=== PATIENT | male | born 1985 | race Caucasian/White ===

== ENCOUNTER 2016-09-10 23:50 | Emergency (ER) | payer OTHER ==
[~2016-09-10] VITALS: Ht 157.5 cm; Wt 57.9 kg
[2016-09-10 23:56] VITALS: TEMP 36.7; Ht 157.5 cm; Wt 57.9 kg
[2016-09-11] MEDS ORDERED: CLINDAMYCIN HCL 150 MG CAP PO ONE (00:15)
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
[2016-09-11 00:31] LABS: URINE APPEARANCE CLEAR (CLEAR); URINE BILIRUBIN NEG (NEG); URINE COLOR YELLOW; URINE EPITHELIAL CELL AUTO 0-5 /lpf (0-5); URINE NITRITE NEG (NEG); URINE PH 7.5 (4.5-7.5); URINE SPECIFIC GRAVITY 1.012 (1.000-1.030); UROBILINOGEN NEG (NEG); ZZUR CULT IF INDIC CLEAN CATCH NO
[2016-09-11 00:34] LABS: MANUAL MICROSCOPIC REQUIRED? NO; REVIEW REQ? NO
[2016-09-11 00:46] LABS: BENZODIAZEPINE, URINE NEG (NEG); COCAINE,URINE NEG (NEG); PHENCYCLIDINE, URINE NEG (NEG)
[2016-09-11 00:51] LABS: BASO % 0.2 %; BASO ABS # 0.02 K/uL (0-0.2); COMPLETE YES; EOS % 0.5 %; HEMATOCRIT 43.9 % (42-52); IG% 0.8 %; LYMPH % 19.7 %; LYMPH ABS # 2.01 K/uL (1.2-3.4); MEAN CELL VOLUME 89.6 fL (80-100); MEAN CORPUSCULAR HGB CONC 34.6 g/dl (32-36); MEAN PLATELET VOLUME 9.3 fL (7.4-10.4); MONO % 6.7 %; NEUT % 72.1 %; PLATELET COUNT 279 K/uL (130-400); WHITE BLOOD COUNT 10.18 K/uL (4.8-10.8)
[2016-09-11] MEDS ORDERED: LAMO100T16 PO (00:56)
[2016-09-11] MEDS ORDERED: RISP2TAB22 PO (00:56)
[2016-09-11] MEDS ORDERED: CITA40TA12 PO (00:56)
[2016-09-11] MEDS ORDERED: LAMO25TA PO (00:56)
[2016-09-11 01:09] LABS: ALT/SGPT 44 U/L (12-78); AST/SGOT 18 U/L (15-37); BLOOD UREA NITROGEN 24 mg/dl (7-18); BUN/CREATININE RATIO 38.7 (10-20); CALCIUM 9.1 mg/dl (8.5-10.1); CARBON DIOXIDE 28 mmol/L (21-32); CHLORIDE 103 mmol/L (98-107); CREATININE 0.62 mg/dl (0.60-1.40); GLUCOSE 97 mg/dl (70-99); POTASSIUM 3.7 mmol/L (3.5-5.1); SODIUM 139 mmol/L (136-145)
[2016-09-11 01:19] LABS: ALB/GLOB RATIO 1.3 (0.9-2); ALKALINE PHOSPHATASE 68 U/L (45-117)
[2016-09-11 01:31] LABS: ACETAMINOPHEN < 2 ug/ml (10-30)
[2016-09-11] MEDS ORDERED: CLIN300C2 PO (02:21)
[2016-09-11 06:41] VITALS: BP 125/71; PULSE 81; O2SAT 98
== END 2016-09-11 06:41 | disposition home or self-care (01) ==
LOC: C.EDB 23:53 → C.EDA 09-11 06:41
DX: F33.41 Major depressive disorder, recurrent, in partial remission (principal); F39 Unspecified mood [affective] disorder; F43.10 Post-traumatic stress disorder, unspecified; K04.7 Periapical abscess without sinus; F31.9 Bipolar disorder, unspecified; K02.9 Dental caries, unspecified; K08.89 Other specified disorders of teeth and supporting structures; F17.200 Nicotine dependence, unspecified, uncomplicated; R56.9 Unspecified convulsions

== ENCOUNTER 2016-09-12 02:36 | Inpatient (IN) | payer OTHER ==
[~2016-09-12] VITALS: Ht 157.5 cm; Wt 57.2 kg
[~2016-09-12 02:36] MED LIST: CITA40TA12 PO; CLIN300C2 PO; LAMO100T16 PO; LAMO25TA PO; RISP2TAB22 PO
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
[2016-09-12] MEDS ORDERED: CLINDAMYCIN HCL 150 MG CAP PO ONE (03:00)
[2016-09-12 03:04] LABS: BASO % 0.6 %; BASO ABS # 0.04 K/uL (0-0.2); COMPLETE YES; EOS % 1.5 %; HEMATOCRIT 41.2 % (42-52); IG% 0.4 %; LYMPH % 40.1 %; MEAN CELL VOLUME 89.6 fL (80-100); MEAN CORPUSCULAR HEMOGLOBIN 30.7 pg (25-34); MEAN CORPUSCULAR HGB CONC 34.2 g/dl (32-36); MEAN PLATELET VOLUME 9.1 fL (7.4-10.4); MONO % 9.4 %; PLATELET COUNT 265 K/uL (130-400); WHITE BLOOD COUNT 7.24 K/uL (4.8-10.8)
[2016-09-12 03:07] LABS: URINE APPEARANCE CLEAR (CLEAR); URINE BILIRUBIN NEG (NEG); URINE COLOR YELLOW; URINE NITRITE NEG (NEG); UROBILINOGEN NEG (NEG); ZZUR CULT IF INDIC CLEAN CATCH NO
[2016-09-12 03:08] LABS: MANUAL MICROSCOPIC REQUIRED? NO; REVIEW REQ? NO
[2016-09-12 03:30] LABS: BENZODIAZEPINE, URINE NEG (NEG); COCAINE,URINE NEG (NEG); PHENCYCLIDINE, URINE NEG (NEG)
[2016-09-12 03:49] LABS: ACETAMINOPHEN < 2 ug/ml (10-30)
[2016-09-12 03:51] LABS: ALB/GLOB RATIO 1.4 (0.9-2); BUN/CREATININE RATIO 29.1 (10-20); CALCIUM 8.8 mg/dl (8.5-10.1); CREATININE 0.76 mg/dl (0.60-1.40); POTASSIUM 3.7 mmol/L (3.5-5.1)
[2016-09-12] MEDS ORDERED: NURSING VERBAL MED ORDER ONE (05:30)
[2016-09-12 05:39] VITALS: O2SAT 96
[2016-09-12 05:45] VITALS: BP 105/66; PULSE 79; TEMP 36.3; BMI 22.5
[2016-09-12] MEDS ORDERED: BISMUTH SUBSALICYLATE PER ML OMNICELL CHARGE PO PRN (05:45)
[2016-09-12] MEDS ORDERED: SODIUM CHLORIDE 0.65% NA SOLN 45 ML (OCEAN) PRN (05:45)
[2016-09-12] MEDS ORDERED: ACETAMINOPHEN 325 MG TAB PO PRN (05:45)
[2016-09-12] MEDS ORDERED: hydrOXYzine HCL 25 MG TAB PO PRN ×2 (05:45)
[2016-09-12] MEDS ORDERED: ALUMINUM/MAGNESIUM SUSP 30 ML UDC PO PRN (05:45)
[2016-09-12] MEDS ORDERED: MAGNESIUM HYDROXIDE SUSP 30 ML UDC PO PRN (05:45)
[2016-09-12 12:57] VITALS: BP 105/66; PULSE 79; TEMP 36.3; Ht 157.5 cm; Wt 57.2 kg
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
[2016-09-12] MEDS: CLINDAMYCIN HCL 150 MG CAP PO SCH ×2 (17:14→21:52)
[2016-09-12] MEDS: CITALOPRAM 40 MG TAB PO SCH (21:52)
[2016-09-12] MEDS: RISPERIDONE 2 MG TAB PO SCH (21:52)
[2016-09-13 06:52] VITALS: BP_SYST 106; BP_SYST 109; BP_DIAS 62; BP_DIAS 65; PULSE 51; PULSE 65; TEMP 36.5
[2016-09-13] MEDS: CLINDAMYCIN HCL 150 MG CAP PO SCH ×4 (08:29→21:35)
[2016-09-13] MEDS ORDERED: NAPROXEN 250 MG TAB PO PRN (10:15)
--- NOTE | 2016-09-13 10:19 | Psychiatric Progress Notes ---
Progress Note Date of Service September 13, 2016. Interval History Jorge Chambers is a 31-year-old homeless single white male with a history of antisocial personality disorder, polysubstance dependence, and depression and anxiety not otherwise specified who presented to the emergency room twice in the past 2 days with depression, last night endorsed suicidality, and was admitted voluntarily. Chief Complaint "Still depressed, still a little suicidal". Subjective Patient was seen & assessed interval progress reviewed with nursing. Staff report he showered last night and attended groups. He met with the community mental health social worker for discharge planning. He says he is doing well, then says he is still suicidal and having urges to cut. He initially says he has these urges "once or twice a month," then says he has had them "2 or 3 times" since yesterday. He feels worse when he thinks about going to a homeless mcc that is 4 hours away from his girlfriend and her child, who he refers to as his son, although they are not related. He says he talked to his girlfriend on the phone, then says she "has seizures and can't talk, she's mute." He says he can understand her because he knows her so well, so they can still talk on the phone. He says he has no treatment goals other than to get help getting to the mcc. He admits he skipped both groups so far this morning, but says he went to groups yesterday. He says the community mental health social worker is "going to contact someone to help me get a bus ticket to the mcc." He says he is going to call his friend Anthony to see if he can help him pay for a bus ticket, but hasn't called him yet, because "I need someone to dial the number for me." He does not know how much the ticket will cost. Sleep Information Total Hours of Sleep: 6.75 Meal Information Percent of Breakfast Consumed: 100 Percent of Lunch Consumed: 100 Percent of Dinner Consumed: 100 Mental Status Exam During interview pt is: alert and oriented, cooperative Appearance: disheveled (hair sticking up erratically, unkempt) Eye contact is: fair Motor behavior is: steady gait & station, no abnormal motor movements Speech: normal in rate, rhythm & volume Affect: euthymic (incongruent with stated mood) Mood is: other ("depressed") Thought process: concrete Thought content: reality based without delusions Suicidal thought are: present (reports urges to cut when stressed), Plan: present, Intent: denied (as has no access to meds) Homicidal thoughts are: denied Hallucinations: denies auditory, denies visual Cognition: attention grossly intact, language grossly intact Intelligence estimated to be: below average Insight: impaired Judgement: impaired Impression 31-year-old male with antisocial personality disorder, borderline personality disorder, PTSD, and substance abuse who presents with suicidal ideation shortly after signing out of the [facility]. He has a history of frequent hospitalizations , but never follows up with outpatient providers, continues to abuse substances , and is generally noncompliant with treatment. There is a concern for malingering, and we will need to get collateral information as he is not a reliable historian. Plan (1) Suicidal ideation Every 15 minute checks for safety, encourage participation in unit groups and programming, and work on healthy coping skills and discharge safety plan. Ideally, he would not have access to large amounts of medications, but as he is homeless with few supports, it may not be possible to come up with a plan whereby medications are Secured and dispensed to him daily. We will however explore this. (2) Mood disorder Diagnosis: Depression not otherwise specified. Rule out major depression versus bipolar disorder versus personality disorder. 09/12 -Will request [facility] records from recent hospitalization to attempt to clarify diagnosis. -Patient feels his most recent medication regimen was helpful, and wishes to resume it. Will restart citalopram 40 mg daily at bedtime, risperidone 2 mg daily at bedtime, and lamotrigine titration starting with 25 mg daily at bedtime. 09/13 -Continue current meds. He has prescriptions for all of them from the [facility]. -Fasting labs drawn this morning for monitoring on an atypical antipsychotic. Results are pending. -Social work looking into aftercare options. He will first need to switch his medical assistance from [facility] to [facility]. (3) Posttraumatic Stress Disorder Resume citalopram as above. Patient would benefit from therapy, but is homeless and travels from place to place, so it is not clear if this will be feasible. (4) Substance abuse Has a history of alcohol, stimulants, caffeine, and nicotine abuse. Also admits to recent opiate and cocaine abuse. Would not recommend he be prescribed any controlled substances due to the high risk of abuse, misuse, and negative outcomes. (5) Malingering Rule out malingering, as patient frequently presents to the hospital when he does not of the place to stay and it is cold out, is chronically noncompliant with treatment after leaving the hospital, and gives conflicting and inconsistent reports about his history. (6) Homelessness Patient states he wants to go to a mcc in [place]. pick up worker looking into ways to get bus voucher. Patient to call his friend Anthony today (09/13) to ask for his help as well. (7) Facial cellulitis Continue clindamycin (10 day course) as recommended by emergency room physician. Follow-up as an outpatient. He has a prescription for the medication, but had not filled it. Discharge / Aftercare Planning Primary Care Physician: Name: Stephen Fox Therapist: Name: none Form Worker: Name: none Visit Code E&M Code: 31068 Inventory Assets Strengths: Verbal, voluntary Risk Factors Assessment Male: Yes : Yes /single/: No Higher / Fall in social status: No Health problems: No Mental Health Diagnoses: Yes Substance use disorders: Yes Previous attempt: Yes Previous psychiatric stay: No Hopelessness: No Smoker: Yes Protective Factors Assessment : Yes (but ) Responsible for young children: No Employed: No Stable relationships: No Supportive family: No Good rapport with provider: No Data Vital Signs Last 24 Hrs: Date Time Temp Pulse Resp B/P Pulse Ox O2 Delivery O2 Flow Rate FiO2 09/13/16 06:52 36.5 51 16 109/62 65 106/65 09/12/16 12:57 36.3 79 18 105/66 Meds Administered Last 24 Hrs: Meds Administered (Past 24Hrs) Medications (Trade) Dose Ordered Sig/Erich Route Start Time Stop Time Status Last Admin Dose Admin Clindamycin HCl (Cleocin Cap) 300 mg ONE ONCE PO 09/12/16 03:00 09/12/16 03:01 DC 09/12/16 03:04 300 MG Clindamycin HCl (Cleocin Cap) 300 mg QID PO 09/12/16 17:00 09/22/16 16:59 09/13/16 08:29 300 MG Risperidone (Risperdal Tab) 2 mg HS PO 09/12/16 22:00 10/12/16 21:59 09/12/16 21:52 2 MG Citalopram Hydrobromide (celeXA TAB) 40 mg HS PO 09/12/16 22:00 10/12/16 21:59 09/12/16 21:52 40 MG Lamotrigine (Lamictal Tab) 25 mg HS PO 09/12/16 22:00 10/12/16 21:59 09/12/16 21:52 25 MG Lab Results Last 24 Hrs: Last 24 Hours Test 09/13/16 08:00
[2016-09-13] MEDS ORDERED: NURSING VERBAL MED ORDER ONE (16:00)
[2016-09-13] MEDS: NICOTINE 14 MG/24 HR TDSY TD SCH (17:06)
[2016-09-13] MEDS: CITALOPRAM 40 MG TAB PO SCH (21:35)
[2016-09-13] MEDS: RISPERIDONE 2 MG TAB PO SCH (21:35)
[2016-09-14 07:07] VITALS: BP_SYST 104; BP_SYST 105; BP_DIAS 62; BP_DIAS 67; PULSE 72; PULSE 83; TEMP 36.7
[2016-09-14] MEDS: CLINDAMYCIN HCL 150 MG CAP PO SCH ×2 (08:13→12:10)
[2016-09-14] MEDS: NICOTINE 14 MG/24 HR TDSY TD SCH (08:15)
[2016-09-14] MEDS ORDERED: HYDRPOW37 PO (11:52)
[2016-09-14] MEDS ORDERED: RISP2TAB22 PO (11:52)
[2016-09-14] MEDS ORDERED: CLIN300C2 PO (11:52)
[2016-09-14] MEDS ORDERED: CITA40TA12 PO (11:52)
[2016-09-14] MEDS ORDERED: LMC/150 PO (11:52)
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
[2016-09-14] MEDS ORDERED: NPR250 PO (12:05)
== END 2016-09-14 14:30 | disposition home or self-care (01) | DRG 881 ==
LOC: EDBD 02:36 → C.EDA 02:37 → C.MHU 05:32
PROVIDERS: ADMIT Student in an Organized Health Care Education/Training Program; ATTEND Psychiatry & Neurology Psychiatry
DX: F32.9 Major depressive disorder, single episode, unspecified (principal); R45.851 Suicidal ideations; L03.211 Cellulitis of face; R56.9 Unspecified convulsions; F60.3 Borderline personality disorder; F43.10 Post-traumatic stress disorder, unspecified; F60.2 Antisocial personality disorder; Z59.0 Homelessness; F19.10 Other psychoactive substance abuse, uncomplicated; Z91.5 Personal history of self-harm; Z91.19 Patient's noncompliance with other medical treatment and regimen; F17.210 Nicotine dependence, cigarettes, uncomplicated; Z79.899 Other long term (current) drug therapy; Z88.0 Allergy status to penicillin

== ENCOUNTER 2017-02-19 23:55 | Emergency (ER) | payer OTHER ==
[~2017-02-19] VITALS: Ht 157.5 cm; Wt 58.7 kg
[~2017-02-19 23:55] MED LIST changes: +HYDRPOW37 PO; -LAMO100T16 PO; -LAMO25TA PO; +NPR250 PO
[2017-02-19 23:58] VITALS: Ht 157.5 cm; Wt 58.7 kg
--- NOTE | 2017-02-20 00:36 | EMERGENCY ROOM VISIT NOTE ---
History Report prepared by Tari: Thomas Solis Under the Supervision of: Dr. Tamiko Greer D.O. First contact with patient: 00:05 Chief Complaint: MENTAL HEALTH EVALUATION Stated Complaint: SUICIDAL IDEATION,MEDS NOT WORKING History of Present Illness The patient is a 31 year old male who presents to the Emergency Room with complaints of an episode of suicidal ideation beginning yesterday. The patient states that he takes daily Remeron and Resperal, but has not taken them in the past two days. He notes that he was on the phone with a friend yesterday and said that he was going to overdose on his medication. He notes that he was 302ed in december for suicidal ideations. He reports that he was taken into custody after missing a court hearing and placed on suicide watch. When he was released the next day, he was brought into the emergency department after making a suicidal sounding joke. He also states that he experiences severe left testicle pain randomly once a week. He reports that there are no triggers for his testicular pain, but thinks that it might be caused by long periods of sitting. The patient states that he had a hernia operation when he was 18, and believes that his testicular pain that might be causing his testicular pain. states this was previously evaluated with an US, but he didn't follow-up with urology. He denies any fever, chills, vomiting, painful urination, or previous urinary infections. The patient states that he has a past history of a yeast infection. He notes having 3 prior overdoses. He reports being given Thorazine for his suicidal ideations but has not taken his medication in the past 5 days. Source of History: patient, friend Onset: yesterday Position: other (global) Quality: other (suicidal ideation) Timing: other (an episode) Associated Symptoms: + urinary symptoms (trouble controling bladder), No fevers, No vomiting Note: he denies any painful urination Review of Systems See HPI for pertinent positives & negatives. A total of 10 systems reviewed and were otherwise negative. Past Medical & Surgical Medical Problems: (1) Bipolar Disorder, Unspecified (2) alcohol syndrome (3) Malingering (4) Posttraumatic Stress Disorder (5) Seizures (6) Substance abuse Social History Problems: (1) Homelessness Family History No pertinent family history Social History Smoking Status: Current Every Day Smoker Alcohol Use: occasionally Drug Use: none Marital Status: single Housing Status: other Occupation Status: unemployed Current/Historical Medications Scheduled Buspirone Hcl (Buspar), 15 MG PO HS Chlorpromazine Hcl (Thorazine), 12.5 MG PO HS Risperidone (Risperdal), 4 MG PO HS Venlafaxine Hcl (Effexor), 75 MG PO HS Scheduled PRN Hydroxyzine Pamoate (Vistaril), 50 MG PO HS PRN for Sleep Allergies Coded Allergies: Penicillins (Verified Allergy, Unknown, Rash, 02/20/17) Reported by PT Physical Exam Vital Signs Date Time Temp Pulse Resp B/P (MAP) Pulse Ox O2 Delivery O2 Flow Rate FiO2 02/20/17 09:35 71 18 123/67 98 02/20/17 07:51 36.8 76 18 129/63 98 Room Air 02/19/17 23:58 37.7 93 18 146/87 99 Room Air Physical Exam GENERAL: alert, well appearing, well nourished, no distress, non-toxic, poor hygiene EYE EXAM: normal conjunctiva, PERRL and EOM's grossly intact OROPHARYNX: no exudate, no erythema, lips, buccal mucosa, and tongue normal and mucous membranes are moist, poor dentition NECK: supple, no nuchal rigidity, no adenopathy, non-tender LUNGS: Clear to auscultation. Normal chest wall mechanics HEART: no murmurs, S1 normal and S2 normal ABDOMEN: abdomen soft, non-tender, normo-active bowel sounds, no masses, no rebound or guarding. BACK: Back is symmetrical on inspection and there is no deformity, no midline tenderness, no CVA tenderness. SKIN: no rashes and no bruising UPPER EXTREMITIES: upper extremities are grossly normal. LOWER EXTREMITIES: No pitting edema. NEURO EXAM: Normal sensorium, cranial nerves II-XII grossly intact, normal speech, no gross weakness of arms, no gross weakness of legs. PSYCH: positive depression, positive SI, odd affect Medical Decision & Procedures Laboratory Results 02/20/17 00:32 Red Blood Count 4.49, Mean Corpuscular Volume 89.3, Mean Corpuscular Hemoglobin 30.7, Mean Corpuscular Hemoglobin Concent 34.4, Mean Platelet Volume 9.5, Neutrophils (%) (Auto) 59.6, Lymphocytes (%) (Auto) 26.9, Monocytes (%) (Auto) 11.0, Eosinophils (%) (Auto) 1.5, Basophils (%) (Auto) 0.6, Neutrophils # (Auto ) 4.93, Lymphocytes # (Auto) 2.22, Monocytes # (Auto) 0.91, Eosinophils # (Auto ) 0.12, Basophils # (Auto) 0.05 02/20/17 00:32 Test 02/20/17 00:22 02/20/17 00:32 Urine Color YELLOW Urine Appearance CLEAR (CLEAR) Urine pH 7.5 (4.5-7.5) Urine Specific [place] 1.014 (1.000-1.030) Urine Protein NEG (NEG) Urine Glucose (UA) NEG (NEG) Urine Ketones NEG (NEG) Urine Occult Blood NEG (NEG) Urine Nitrite NEG (NEG) Urine Bilirubin NEG (NEG) Urine Urobilinogen NEG (NEG) Urine Leukocyte Esterase NEG (NEG) Urine Opiates Screen NEG (NEG) Urine Methadone, Qualitative NEG (NEG) Urine Barbiturates NEG (NEG) Urine Phencyclidine (PCP) Level NEG (NEG) Ur Amphetamine/Methamphetamine NEG (NEG) MDMA (Ecstasy) Screen NEG (NEG) Urine Benzodiazepines Screen NEG (NEG) Urine Cocaine Metabolite NEG (NEG) Urine Marijuana (THC) NEG (NEG) White Blood Count 8.26 K/uL (4.8-10.8) Red Blood Count 4.49 M/uL (4.7-6.1) Hemoglobin 13.8 g/dL (14.0-18.0) Hematocrit 40.1 % (42-52) Mean Corpuscular Volume 89.3 fL (80-100) Mean Corpuscular Hemoglobin 30.7 pg (25-34) Mean Corpuscular Hemoglobin Concent 34.4 g/dl (32-36) Platelet Count 282 K/uL (130-400) Mean Platelet Volume 9.5 fL (7.4-10.4) Neutrophils (%) (Auto) 59.6 % Lymphocytes (%) (Auto) 26.9 % Monocytes (%) (Auto) 11.0 % Eosinophils (%) (Auto) 1.5 % Basophils (%) (Auto) 0.6 % Neutrophils # (Auto) 4.93 K/uL (1.4-6.5) Lymphocytes # (Auto) 2.22 K/uL (1.2-3.4) Monocytes # (Auto) 0.91 K/uL (0.11-0.59) Eosinophils # (Auto) 0.12 K/uL (0-0.5) Basophils # (Auto) 0.05 K/uL (0-0.2) RDW Standard Deviation 47.4 fL (36.4-46.3) RDW Coefficient of Variation 14.6 % (11.5-14.5) Immature Granulocyte % (Auto) 0.4 % Immature Granulocyte # (Auto) 0.03 K/uL (0.00-0.02) Anion Gap 7.0 mmol/L (3-11) Est Creatinine Clear Calc Drug Dose 109.8 ml/min Estimated GFR () 141.9 Estimated GFR (Non- 122.4 BUN/Creatinine Ratio 22.5 (10-20) Bedside Glucose 91 mg/dl (70-99) Calcium Level 8.8 mg/dl (8.5-10.1) Total Bilirubin 0.3 mg/dl (0.2-1) Direct Bilirubin < 0.1 mg/dl (0-0.2) Aspartate Amino Transf (AST/SGOT) 20 U/L (15-37) Alanine Aminotransferase (ALT/SGPT) 24 U/L (12-78) Alkaline Phosphatase 75 U/L (45-117) Total Protein 7.3 gm/dl (6.4-8.2) Albumin 3.8 gm/dl (3.4-5.0) Thyroid Stimulating Hormone (TSH) 0.430 uIu/ml (0.300-4.500) Chemistry Specimen Hemolysis Ethyl Alcohol mg/dL < 3.0 mg/dl (0-3) Laboratory results per my review. ED Course 0009: The patient was evaluated in room A5. A complete history and physical exam was performed. 0200: Pt seen and evaluated. 201 signed. 0300: Bed search in progress. Pt signed out to Dr. Newman. Medical Decision Differential diagnosis: Etiologies such as mood disorder, infection, hypoglycemia, electrolyte abnormalities, cardiac sources, intracerebral event, toxicologic, neurologic, as well as others were entertained. Pt signed voluntary. Presentation similar to prior. Pt cooperative, not aggressive or agitated. Awaiting placement. Blood Pressure Screening Patient's blood pressure: Elevated blood pressure Blood pressure disposition: Elevated BP felt to be situational Impression Primary Impression: Depression Additional Impressions: Suicidal ideation Mood disorder Scribe Attestation The scribe's documentation has been prepared under my direction and personally reviewed by me in its entirety. I confirm that the note above accurately reflects all work, treatment, procedures, and medical decision making performed by me. Departure Information Dispostion Mental [facility] Acute Care Referrals Trevon See M.D.([facility]) (PCP) Patient Instructions My [facility] Problem Qualifiers Primary Impression: Depression Depression Type: unspecified Qualified Codes: F32.9 - Major depressive disorder, single episode, unspecified
[2017-02-20 00:39] LABS: URINE APPEARANCE CLEAR (CLEAR); URINE BILIRUBIN NEG (NEG); URINE COLOR YELLOW; URINE NITRITE NEG (NEG); URINE PH 7.5 (4.5-7.5); URINE SPECIFIC GRAVITY 1.014 (1.000-1.030); UROBILINOGEN NEG (NEG)
[2017-02-20 00:42] LABS: MANUAL MICROSCOPIC REQUIRED? NO; REVIEW REQ? NO
[2017-02-20 00:43] LABS: BASO % 0.6 %; BASO ABS # 0.05 K/uL (0-0.2); COMPLETE YES; EOS % 1.5 %; HEMATOCRIT 40.1 % (42-52); IG% 0.4 %; LYMPH % 26.9 %; LYMPH ABS # 2.22 K/uL (1.2-3.4); MEAN CELL VOLUME 89.3 fL (80-100); MEAN CORPUSCULAR HEMOGLOBIN 30.7 pg (25-34); MEAN CORPUSCULAR HGB CONC 34.4 g/dl (32-36); MEAN PLATELET VOLUME 9.5 fL (7.4-10.4); NEUT % 59.6 %; PLATELET COUNT 282 K/uL (130-400); RED BLOOD COUNT 4.49 M/uL (4.7-6.1); WHITE BLOOD COUNT 8.26 K/uL (4.8-10.8)
[2017-02-20 01:03] LABS: BENZODIAZEPINE, URINE NEG (NEG); COCAINE,URINE NEG (NEG); PHENCYCLIDINE, URINE NEG (NEG)
[2017-02-20 01:17] LABS: ALT/SGPT 24 U/L (12-78); AST/SGOT 20 U/L (15-37); BLOOD UREA NITROGEN 17 mg/dl (7-18); BUN/CREATININE RATIO 22.5 (10-20); CALCIUM 8.8 mg/dl (8.5-10.1); CARBON DIOXIDE 27 mmol/L (21-32); CHLORIDE 106 mmol/L (98-107); CREATININE 0.76 mg/dl (0.60-1.40); GLUCOSE 90 mg/dl (70-99); POTASSIUM 3.8 mmol/L (3.5-5.1); SODIUM 140 mmol/L (136-145)
[2017-02-20 01:21] LABS: ALKALINE PHOSPHATASE 75 U/L (45-117)
[2017-02-20] MEDS ORDERED: HYDR50CA2 PO (02:06)
[2017-02-20] MEDS ORDERED: RISP4TAB7 PO (02:06)
[2017-02-20] MEDS ORDERED: EFF75 PO (02:07)
[2017-02-20] MEDS ORDERED: BUSP15TA70 PO (02:07)
[2017-02-20] MEDS ORDERED: CHLO1TAB19 PO (02:07)
--- NOTE | 2017-02-20 07:06 | EMERGENCY ROOM VISIT NOTE ---
ED Visit Note 31 yr old male with long standing psychiatric illness with bipolar disorder and frequent hospitalizations. Arrives stating suicidal. Evaluated, medically cleared and [address] Greer. Signed out to me awaiting bed search. Accepted to [facility]. Slept throughout evening without issues other than periodically getting up to get phone charged.
[2017-02-20 07:51] VITALS: TEMP 36.8
[2017-02-20 09:35] VITALS: BP 123/67; PULSE 71; O2SAT 98
== END 2017-02-20 09:49 ==
LOC: C.EDB 23:57 → C.EDA 02-20 09:49
DX: R45.851 Suicidal ideations (principal); F39 Unspecified mood [affective] disorder; F32.9 Major depressive disorder, single episode, unspecified; F31.9 Bipolar disorder, unspecified; G40.909 Epilepsy, unspecified, not intractable, without status epilepticus; F17.200 Nicotine dependence, unspecified, uncomplicated; Z79.899 Other long term (current) drug therapy; Z88.0 Allergy status to penicillin

== ENCOUNTER 2017-03-05 19:29 | Emergency (ER) | payer OTHER ==
[~2017-03-05] VITALS: Ht 157.5 cm; Wt 63.0 kg
[~2017-03-05 19:29] MED LIST changes: +BUSP15TA70 PO; +CHLO1TAB19 PO; -CITA40TA12 PO; -CLIN300C2 PO; +EFF75 PO; +HYDR50CA2 PO; -HYDRPOW37 PO; -NPR250 PO; -RISP2TAB22 PO; +RISP4TAB7 PO
[2017-03-05 19:32] VITALS: TEMP 37; Ht 157.5 cm; Wt 63.0 kg
--- NOTE | 2017-03-05 19:56 | EMERGENCY ROOM VISIT NOTE ---
History Report prepared by Tari: Thomas Solis Under the Supervision of: Dr. Ko Gomes M.D. First contact with patient: 19:35 Chief Complaint: ANXIETY Stated Complaint: CAN'T BREATH, NEED INHALER, HIGH ANXIETY History of Present Illness The patient is a 32 year old male who presents to the Emergency Room with complaints of an episode of anxiety beginning today. The patient states that he was discharged from the [facility] today but does not have a permanent place of residence. He states that he was going to go to [facility], but reports that he was walking around [facility] today when his symptoms began. The patient states that he stopped taking his anxiety medication and was not given his inhaler prior to discharge from the [facility]. He notes that as he was walking around [facility] today, he began to experience shortness of breath. He reports that his symptoms may have started due to his anxiety or due to the fact that he did not have his inhaler with him. The patient states that his shortness of breath felt like "someone was stabbing him in his left lung." He denies any nausea or vomiting. He notes that he also experiences symptoms of depression and currently has a rash in his crotch region. He reports that his shortness of breath may have been a reaction to one of his medications. He denies any suicidal or homicidal ideations but states that he is unable to handle stress by himself. He notes that he had the urge to use drugs today, but reports that he did not because he is on probation for 6 months and is regularly drug tested. Source of History: patient Onset: today Position: other (global) Quality: stabbing Timing: other (an episode) Associated Symptoms: + SOB, + rash, No nausea, No vomiting Review of Systems See HPI for pertinent positives and negatives. A total of ten systems were reviewed and were otherwise negative. Past Medical & Surgical Medical Problems: (1) Bipolar Disorder, Unspecified (2) alcohol syndrome (3) Malingering (4) Posttraumatic Stress Disorder (5) Seizures (6) Substance abuse Social History Problems: (1) Homelessness Family History No pertinent family history Social History Smoking Status: Current Every Day Smoker Alcohol Use: occasionally Drug Use: none Marital Status: single Housing Status: other Occupation Status: unemployed Current/Historical Medications Scheduled Buspirone HCl (Buspirone HCl), 10 MG PO BID Mirtazapine (Remeron), 7.5 MG PO HS Prazosin Hcl (Prazosin), 1 MG PO HS Risperidone (Risperdal), 4 MG PO HS Allergies Coded Allergies: Penicillins (Verified Allergy, Unknown, Rash, 03/05/17) Reported by PT Physical Exam Vital Signs Date Time Temp Pulse Resp B/P (MAP) Pulse Ox O2 Delivery O2 Flow Rate FiO2 03/05/17 23:28 80 18 132/85 99 03/05/17 23:13 80 18 132/85 99 Room Air 03/05/17 19:32 37.0 119 20 151/87 98 Room Air Physical Exam GENERAL: Awake, alert, in no distress. Poorly kept and disheveled, foul odor. HENT: Normocephalic, atraumatic. Oropharynx unremarkable. EYES: Normal conjunctiva. Sclera non-icteric. NECK: Supple. No nuchal rigidity. FROM. No JVD. RESPIRATORY: Clear to auscultation. CARDIAC: Regular rate, normal rhythm. Extremities warm and well perfused. Pulses equal. ABDOMEN: Soft, non-distended. No tenderness to palpation. No rebound or guarding. No masses. RECTAL: Deferred. : Mild light erythema in groin and scrotum with scaling and desquamation consistent with yeast. MUSCULOSKELETAL: Chest examination reveals no tenderness. The back is symmetrical on inspection without obvious abnormality. There is no CVA tenderness to palpation. No joint edema. LOWER EXTREMITIES: Calves are equal size bilaterally and non-tender. No edema. No discoloration. NEURO: Normal sensorium. No sensory or motor deficits noted. SKIN: No rash or jaundice noted. Medical Decision & Procedures ER Provider Diagnostic Interpretation: Radiology results as stated below per my review and radiologist interpretation: CHEST ONE VIEW PORTABLE FINDINGS: Cardiomediastinal and hilar silhouettes are within normal limits. There is no pneumothorax, pleural effusion, focal airspace consolidation or overt pulmonary edema. Bones of the chest are grossly intact. IMPRESSION: No acute cardiopulmonary process. The above report was generated using voice recognition software. It may contain grammatical, syntax or spelling errors. Electronically signed by: Sanket Cevallos M.D. 03/05/2017 8:19 PM Laboratory Results 03/05/17 20:28 Red Blood Count 4.70, Mean Corpuscular Volume 88.7, Mean Corpuscular Hemoglobin 30.2, Mean Corpuscular Hemoglobin Concent 34.1, Mean Platelet Volume 9.2, Neutrophils (%) (Auto) 68.7, Lymphocytes (%) (Auto) 18.3, Monocytes (%) (Auto) 11.2, Eosinophils (%) (Auto) 1.0, Basophils (%) (Auto) 0.4, Neutrophils # (Auto ) 9.30, Lymphocytes # (Auto) 2.48, Monocytes # (Auto) 1.51, Eosinophils # (Auto ) 0.13, Basophils # (Auto) 0.05 03/05/17 20:28 Test 03/05/17 19:41 03/05/17 20:28 Urine Color YELLOW Urine Appearance CLEAR (CLEAR) Urine pH 5.5 (4.5-7.5) Urine Specific [place] 1.017 (1.000-1.030) Urine Protein NEG (NEG) Urine Glucose (UA) NEG (NEG) Urine Ketones NEG (NEG) Urine Occult Blood NEG (NEG) Urine Nitrite NEG (NEG) Urine Bilirubin NEG (NEG) Urine Urobilinogen NEG (NEG) Urine Leukocyte Esterase NEG (NEG) Urine Opiates Screen NEG (NEG) Urine Methadone, Qualitative NEG (NEG) Urine Barbiturates NEG (NEG) Urine Phencyclidine (PCP) Level NEG (NEG) Ur Amphetamine/Methamphetamine NEG (NEG) MDMA (Ecstasy) Screen NEG (NEG) Urine Benzodiazepines Screen NEG (NEG) Urine Cocaine Metabolite NEG (NEG) Urine Marijuana (THC) NEG (NEG) White Blood Count 13.53 K/uL (4.8-10.8) Red Blood Count 4.70 M/uL (4.7-6.1) Hemoglobin 14.2 g/dL (14.0-18.0) Hematocrit 41.7 % (42-52) Mean Corpuscular Volume 88.7 fL (80-100) Mean Corpuscular Hemoglobin 30.2 pg (25-34) Mean Corpuscular Hemoglobin Concent 34.1 g/dl (32-36) Platelet Count 311 K/uL (130-400) Mean Platelet Volume 9.2 fL (7.4-10.4) Neutrophils (%) (Auto) 68.7 % Lymphocytes (%) (Auto) 18.3 % Monocytes (%) (Auto) 11.2 % Eosinophils (%) (Auto) 1.0 % Basophils (%) (Auto) 0.4 % Neutrophils # (Auto) 9.30 K/uL (1.4-6.5) Lymphocytes # (Auto) 2.48 K/uL (1.2-3.4) Monocytes # (Auto) 1.51 K/uL (0.11-0.59) Eosinophils # (Auto) 0.13 K/uL (0-0.5) Basophils # (Auto) 0.05 K/uL (0-0.2) RDW Standard Deviation 45.6 fL (36.4-46.3) RDW Coefficient of Variation 14.0 % (11.5-14.5) Immature Granulocyte % (Auto) 0.4 % Immature Granulocyte # (Auto) 0.06 K/uL (0.00-0.02) Anion Gap 9.0 mmol/L (3-11) Est Creatinine Clear Calc Drug Dose 111.7 ml/min Estimated GFR () 142.5 Estimated GFR (Non- 122.9 BUN/Creatinine Ratio 25.2 (10-20) Calcium Level 9.3 mg/dl (8.5-10.1) Total Bilirubin 0.2 mg/dl (0.2-1) Direct Bilirubin < 0.1 mg/dl (0-0.2) Aspartate Amino Transf (AST/SGOT) 27 U/L (15-37) Alanine Aminotransferase (ALT/SGPT) 52 U/L (12-78) Alkaline Phosphatase 85 U/L (45-117) Troponin I 0.027 ng/ml (0-0.045) Total Protein 7.7 gm/dl (6.4-8.2) Albumin 4.2 gm/dl (3.4-5.0) Globulin 3.5 gm/dl (2.5-4.0) Albumin/Globulin Ratio 1.2 (0.9-2) Thyroid Stimulating Hormone (TSH) 2.070 uIu/ml (0.300-4.500) Ethyl Alcohol mg/dL < 3.0 mg/dl (0-3) Laboratory results reviewed by me Medications Administered Medications (Trade) Dose Ordered Sig/Erich Route Start Time Stop Time Status Last Admin Dose Admin Albuterol (Ventolin Hfa Inhaler) 2 puffs NOW ONCE INH 10/31/17 20:00 03/05/17 20:01 DC 03/05/17 20:26 2 PUFFS Clotrimazole (Lotrimin 1% Crm) 1 appln NOW ONCE EXT 03/05/17 20:00 03/05/17 20:01 DC 03/05/17 20:26 1 APPLN ECG Indication: SOB/dyspnea Rate (beats per minute): 91 Rhythm: normal sinus Findings: RBBB (incomplete), no acute ischemic change, other (normal axis) Change: no significant change ED Course 1937: The patient was evaluated in room A7. A complete history and physical exam was performed. 1999: Clotrimazole appln EXT, Albuterol 2 puffs INH 2233: I reevaluated and updated the patient. 2323: I reevaluated the patient. Discussed results and discharge instructions: He verbalized understanding and agreement. The patient is ready for discharge. Medical Decision I reviewed the patient's past medical history, medications, and the nursing notes as described above. Differential diagnoses include: anxiety, depression, asthma, pneumonia, and bronchitis. The patient is a 31 yo gentleman with a past medical history of anxiety and depression, polysubstance abuse, suicidal ideation percents emergency department with anxiety and shortness of breath that occurred prior to arrival in the setting of being discharged from the [facility] earlier today per history of present illness. Denies SI/HI. Of note the patient reports requesting expedited discharge day and feels that maybe this was premature. He explains that they made medication changes discontinuing his Vistaril and beginning buspar. He also reports that he forgot to get his inhaler when he left wonders if his shortness of breath could be related to his asthma. He is also chronic smoker. The patient reports some itching and redness in his groin which on exam has mild redness without warmth and mild desquamation consistent with tinea cruris. Will treat with antifungal topically. EKG unremarkable. WBC 13 nonspecific, labs otherwise unremarkable. CXR negative. Patient feeling improved after MDI. Feels OK to go back to his [facility] and f/u with his pcp. Medication Reconcilliation Current Medication List: was personally reviewed by me Blood Pressure Screening Patient's blood pressure: Elevated blood pressure Blood pressure disposition: Elevated BP felt to be situational Impression Primary Impression: Acute anxiety Additional Impressions: Asthma Tinea cruris Scribe Attestation The scribe's documentation has been prepared under my direction and personally reviewed by me in its entirety. I confirm that the note above accurately reflects all work, treatment, procedures, and medical decision making performed by me. Departure Information Dispostion Home / Self-Care Referrals Trevon See M.D.([facility]) (PCP) Forms HOME CARE DOCUMENTATION FORM, IMPORTANT VISIT INFORMATION Patient Instructions Anxiety Disorder, Asthma, My [facility], Tinea Cruris Additional Instructions Please follow up with your primary care physician in the next 1-3 days for re- evaluation as scheduled. Otherwise, your exam, EKG, chest xray, and lab results did not show signs of an emergent condition at this time. Clotrimazole applied 2 times daily to groin. Inhaler 2 puffs every 4 hours as needed. Return to the emergency department for worsening symptoms as described in the accompanying instructions. Problem Qualifiers
[2017-03-05] MEDS ORDERED: ALBUTEROL HFA 8 GM INHALER INH ONE (20:00)
[2017-03-05] MEDS ORDERED: CLOTRIMAZOLE 1% CR 15 GM TUBE EXT ONE (20:00)
[2017-03-05] MEDS ORDERED: BSP/10 PO (20:06)
[2017-03-05] MEDS ORDERED: PRAZ1CAP10 PO (20:06)
[2017-03-05] MEDS ORDERED: MIRT15TA PO (20:06)
--- NOTE | 2017-03-05 20:21 | DIAGNOSTIC IMAGING REPORT ---
CHEST ONE VIEW PORTABLE HISTORY: 32 years-old Male cp acute atypical chest pain with anxiety and dyspnea. COMPARISON: None available TECHNIQUE: Portable upright AP view of the chest FINDINGS: Cardiomediastinal and hilar silhouettes are within normal limits. There is no pneumothorax, pleural effusion, focal airspace consolidation or overt pulmonary edema. Bones of the chest are grossly intact. IMPRESSION: No acute cardiopulmonary process. The above report was generated using voice recognition software. It may contain grammatical, syntax or spelling errors. Electronically signed by: Sanket Cevallos M.D. 03/05/2017 8:19 PM Dictated Date/Time: 03/05/2017 8:18 PM
[2017-03-05 20:43] LABS: URINE APPEARANCE CLEAR (CLEAR); URINE BILIRUBIN NEG (NEG); URINE COLOR YELLOW; URINE NITRITE NEG (NEG); URINE PH 5.5 (4.5-7.5); URINE SPECIFIC GRAVITY 1.017 (1.000-1.030); UROBILINOGEN NEG (NEG)
[2017-03-05 20:46] LABS: MANUAL MICROSCOPIC REQUIRED? NO; REVIEW REQ? NO
[2017-03-05 20:54] LABS: BASO % 0.4 %; BASO ABS # 0.05 K/uL (0-0.2); COMPLETE YES; HEMATOCRIT 41.7 % (42-52); IG% 0.4 %; LYMPH % 18.3 %; LYMPH ABS # 2.48 K/uL (1.2-3.4); MEAN CELL VOLUME 88.7 fL (80-100); MEAN CORPUSCULAR HEMOGLOBIN 30.2 pg (25-34); MEAN CORPUSCULAR HGB CONC 34.1 g/dl (32-36); MEAN PLATELET VOLUME 9.2 fL (7.4-10.4); MONO % 11.2 %; NEUT % 68.7 %; PLATELET COUNT 311 K/uL (130-400); WHITE BLOOD COUNT 13.53 K/uL (4.8-10.8)
[2017-03-05 21:08] LABS: BENZODIAZEPINE, URINE NEG (NEG); COCAINE,URINE NEG (NEG); PHENCYCLIDINE, URINE NEG (NEG)
[2017-03-05 21:13] LABS: ALT/SGPT 52 U/L (12-78); BLOOD UREA NITROGEN 19 mg/dl (7-18); BUN/CREATININE RATIO 25.2 (10-20); CALCIUM 9.3 mg/dl (8.5-10.1); CARBON DIOXIDE 25 mmol/L (21-32); CHLORIDE 105 mmol/L (98-107); CREATININE 0.74 mg/dl (0.60-1.40); GLUCOSE 83 mg/dl (70-99); POTASSIUM 3.6 mmol/L (3.5-5.1); SODIUM 139 mmol/L (136-145)
[2017-03-05 21:24] LABS: ALB/GLOB RATIO 1.2 (0.9-2); ALKALINE PHOSPHATASE 85 U/L (45-117); AST/SGOT 27 U/L (15-37)
[2017-03-05 23:28] VITALS: BP 132/85; PULSE 80; O2SAT 99
== END 2017-03-05 23:24 | disposition home or self-care (01) ==
LOC: C.EDB 19:30 → C.EDA 23:24
DX: F41.9 Anxiety disorder, unspecified (principal); J45.909 Unspecified asthma, uncomplicated; B35.6 Tinea cruris; I45.10 Unspecified right bundle-branch block; F32.9 Major depressive disorder, single episode, unspecified; G40.909 Epilepsy, unspecified, not intractable, without status epilepticus; F17.200 Nicotine dependence, unspecified, uncomplicated; Z79.899 Other long term (current) drug therapy; Z88.0 Allergy status to penicillin; Z59.0 Homelessness